=== PATIENT | male | born 1945 | race Caucasian/White ===

== ENCOUNTER → 2017-01-10 | Outpatient (CLI) | payer MEDICARE, OTHER ==
--- NOTE | 2017-01-10 16:24 | RADRPT ---
PROCEDURE: RIGHT knee x-ray CLINICAL INDICATION: PAIN TECHNIQUE: AP, lateral, oblique and sunrise views were obtained of the right knee. COMPARISON: Right knee series 09/17/2016 FINDINGS: Again noted is moderate degenerative joint disease of the right knee involving both medial lateral c ompartments. No evidence of acute fractures or dislocations. The bony mineralization is normal. N o focal bony blastic or lytic lesions. No evidence of right knee joint effusion. IMPRESSION: 1. Moderate degenerative joint disease right knee without evidence of acute fractures dislocation o r joint effusion. RPTAT:AAJJ Physician Reza Date Time Electronically viewed and signed by Physician Reza on 01/10/2017 16:23 BM/
== END | disposition home or self-care (01) ==
LOC: HKI 14:52
PROVIDERS: ATTEND Orthopaedic Surgery
DX: M17.11 Unilateral primary osteoarthritis, right knee (principal); M25.561 Pain in right knee
CPT/HCPCS: 20610; 73564; G0463; J7327